=== PATIENT | female | born 1995 | race Caucasian/White ===

== ENCOUNTER → 2020-02-14 | Outpatient (CLI) | payer BC ==
--- NOTE | 2020-02-15 08:17 | XR ---
EXAMINATION TYPE: XR lumbosacral spine min 4V DATE OF EXAM: 02/14/2020 COMPARISON: None HISTORY: Back pain TECHNIQUE: Five-view lumbar spine FINDINGS: There 5 lumbar-type vertebral bodies. Pedicles are intact. Vertebral body are preserved. Mi ld disc space narrowing of L5-S1 may be present. Facets appear normal. No spondylolytic defects are e vident. Alignment is normal. IMPRESSION: 1. There may be some early mild changes L5-S1 in an otherwise normal 5 view lumbar spine.
== END | disposition home or self-care (01) ==
LOC: RADXRMAIN 16:02
PROVIDERS: ATTEND Family Medicine
DX: M54.9 Dorsalgia, unspecified (principal)
CPT/HCPCS: 72110